=== PATIENT | male | born 1975 | race Caucasian/White ===

== ENCOUNTER → 2018-02-03 08:01 | Outpatient (CLI) | payer MEDICAID, SELFPAY ==
--- NOTE | 2018-02-03 08:04 | CT_ITS ---
STUDY: CT MAXILLOFACIAL SINUSES REASON FOR EXAM: Male, 42 years old. History of nasal polyp. RADIATION DOSAGE (If Supplied By Facility): CTDIvol = ( 33.06 ) mGy, DLP = ( 899.96 ) mGycm TECHNIQUE: The patient was scanned in a multi detector CT scanner. High resolution axial imaging was performed without the administration of intravenous contrast material. Sagittal and coronal images were reconstructed. Individualized dose optimization techniques were used for this CT. COMPARISON: None. FINDINGS: FRONTAL SINUSES: Normal aeration, without mucosal inflammatory disease. ETHMOIDAL SINUSES: Partial opacification of the ethmoid sinuses. MAXILLARY SINUSES: Mucosal thickening of the maxillary sinus bilaterally. SPHENOIDAL SINUSES: Normal aeration, without mucosal inflammatory disease. There is obliteration of the ostiomeatal complex bilaterally due to mucosal hypertrophy worse on the left side. Normal bilateral middle turbinates. Normal bilateral inferior turbinates. Normal midline nasal septum. There are nasal secretions along the floor of the nasal airways without a airway obstruction. Soft tissue proliferation within the nasal airway suggestive of polyposis. The visualized osseous structures are normal. The visualized bilateral orbital contents are normal. CT/Sinus/Facial Bone IMPRESSION: Sinusitis as described. Prominent soft tissue within the nasal airways. Electronically Signed: Peter Harp MD at 8:56 EDT Tel [phone], Service support ,
[2018-02-06 12:07] LABS: Clam <0.10 kU/L (Class 0); Codfish <0.10 kU/L (Class 0); Corn 0.12 kU/L (Class 0/I); Egg, White <0.10 kU/L (Class 0); Milk (Cow) <0.10 kU/L (Class 0); Peanut <0.10 kU/L (Class 0); SCALLOP <0.10 kU/L (Class 0); Shrimp <0.10 kU/L (Class 0); Walnut, (Food) 0.17 kU/L (Class 0/I); Wheat 0.21 kU/L (Class 0/I)
[2018-02-06 13:06] LABS: SESAME SEED 0.22 kU/L (Class 0/I)
[2018-02-07 09:36] LABS: Alternaria tenuis 4.65 kU/L (Class IV); Ash, White 0.56 kU/L (Class II); Aspergillus fumigatus 0.17 kU/L (Class 0/I); Birch <0.10 kU/L (Class 0); Black Walnut 0.33 kU/L (Class I); Cedar, Mountain 0.16 kU/L (Class 0/I); Cladosporium herbarum 0.13 kU/L (Class 0/I); Cockroach, American 0.15 kU/L (Class 0/I); Cottonwood 0.23 kU/L (Class 0/I); D farinae Mite 0.11 kU/L (Class 0/I); D pteronyssinus 0.14 kU/L (Class 0/I); Elm, American White 0.18 kU/L (Class 0/I); Immunoglobulin E 316 IU/mL (0-100); Maple/Box Elder 0.12 kU/L (Class 0/I); Mulberry, White <0.10 kU/L (Class 0); Oak, White 0.12 kU/L (Class 0/I); Pecan 0.25 kU/L (Class 0/I); Penicillium Notatum 0.13 kU/L (Class 0/I); Pigweed, Rough 0.18 kU/L (Class 0/I); Ragweed, Short/Common 0.37 kU/L (Class I); Sheep Sorrel <0.10 kU/L (Class 0); Timothy Grass 2.41 kU/L (Class III)
[2018-02-09 11:18] LABS: Mouse Urine <0.10 kU/L (Class 0)
== END ==
PROVIDERS: Family Provider Family Medicine; PCP Family Medicine; Visit Provider Otolaryngology
DX: J33.9 Nasal polyp, unspecified (principal)
CPT/HCPCS: 36415; 70486; 82785; 86003

== ENCOUNTER → 2018-04-24 14:55 | Outpatient (CLI) | payer MEDICAID, SELFPAY ==
--- NOTE | 2018-04-24 12:40 | ETH_PTH ---
PATIENT: MARIA G AMIN LOC: [facility] U#:[id number] AGE/SX: 50/M ROOM: RE04/24/[address]: Dr. Carlos Cuenca MD : 1975 BED: DIS: SPEC #: [id number] RECD: 04/24/18 14:36 STATUS: GLENROY HIRAM #: [id number] NIKKI: 04/24/18 12:[address]: Carlos Cuenca DEPT: SURGICAL PATHOLOGY RECD BY: Harshad Vines ENTERED: 04/25/18 06:54 SP TYPE: ETH TISS OTHR DR: Dr. Chaka Wall, [facility] Tissues: A - Ethmoid sinus, NOS B - Ethmoid sinus, NOS Procedures: Decalcification bone/plaque Surgery Specimen Level III HEADER OPERATION: Endoscopic sinus surgery, bilateral maxillary antrostomy, bilateral ethmoidectomy PRE-OP DIAGNOSIS: Polyp of nasal cavity, chronic sinusitis TISSUE SUBMITTED: A ? Right sinus contents, B ? Left sinus contents MICROSCOPIC DIAGNOSIS A. Right sinus contents: Fragments of benign sinonasal polyp. Mild chronic sinusitis. Fragments of bone with no pathologic change. B. Left sinus contents: Fragments of benign sinonasal polyp. Mild chronic sinusitis. Fragments of bone with no pathologic change. AM:tyrell 04/28/18 MICROSCOPIC DESCRIPTION Slides are reviewed. GROSS DESCRIPTION A - Received in fixative is one container labeled with the patient's name and designated right sinus contents. The specimen consists of multiple irregular fragments of rbown soft tissue mixed with fragments of bone that in aggregate measure 3 x 2.5 x 0.3 cm. The entire specimen is submitted in one cassette after decalcification. B - Received in fixative is one container labeled with the patient's name and designated left sinus contents. The specimen consists of multiple irregular fragments of brown soft tissue mixed with fragments of bone that in aggregate measure 3 x 2.5 x 0.3 cm. The entire specimen is submitted in one cassette after decalcification. / SJ:tyrell 04/25/18 TC:3 CPT: 89336 x2, 53426 x2
== END ==
PROVIDERS: Family Provider Family Medicine; PCP Family Medicine; Visit Provider Otolaryngology
DX: J32.9 Chronic sinusitis, unspecified (principal); J33.0 Polyp of nasal cavity
CPT/HCPCS: 88304; 88305; 88311

== ENCOUNTER → 2020-10-13 14:39 | Outpatient (CLI) | payer OTHER, SELFPAY ==
[2016-10-27 16:34] VITALS: BMI 18.6
[2020-10-13 17:23] LABS: Absolute Lymphocyte Count 1.77 X10^3/uL (0.83-4.51); Absolute Neutrophil Count 2.1 X10^3/uL (2.0-7.7); Basophil# 0.05 X10^3/uL; Eosinophil# 0.37 X10^3/uL; Eosinophils% 7.6 % (0-5); Hematocrit 42.8 % (40-54); Lymphocyte # 1.77 X10^3/ul (4.0); Lymphocyte % 36.3 % (19-41); Mean Corpuscular Hgb 31.8 pg (27.0-32.0); Mean Corpuscular Volume 90.9 fL (80-94); Mean Platelet Vol. 9.9 fl (6.2-12.0); Monocyte# 0.54 X10^3/uL; Monocyte% 11.1 % (0-10); NRBC Flagged by Analyzer 0 % (0-5); Neutrophil # 2.13 X10^3/uL (2.7-7.7); Neutrophil % 43.8 % (47-70); Platelet Count 255 K/mm3 (150-450); RBC Distribution Width CV 12.7 % (11.6-14.6); RBC Distribution Width SD 40.5 fl (35.1-43.9); Red Blood Count 4.71 M/mm3 (4.6-6.2); White Blood Count 4.9 K/mm3 (4.4-11.0)
[2020-10-13 17:37] LABS: Vitamin B12 589 pg/mL (211-911); Vitamin D,25 Hydroxy 20.2 ng/mL
[2020-10-13 17:48] LABS: AST(SGOT) 17 U/L (15-37); Alanine Aminotransfer ALT/SGPT 29 U/L (16-61); Albumin, Serum 3.8 g/dL (3.2-5.0); Alkaline Phosphatase 61 U/L (45-117); Anion Gap 7 (5-15); BUN 14 mg/dL (7-18); BUN/Creat Ratio 14.6 RATIO (10-20); Calcium,Total 8.6 mg/dL (8.5-10.1); Chloride 104 mmol/L (98-107); Cholesterol 163 mg/dL (200); Creatinine, Serum 0.96 mg/dL (0.70-1.30); EST Glomerular Filtration Rate 90 mL/min (>60); Est Glom Filt Rate - Afr Amer 109 mL/min (>60); Globulin 3.8 g/dL (2.2-4.2); Glucose 57 mg/dL (74-106); High Density Lipoprotein 73 mg/dL; Iron 67 ug/dL (65-175); Potassium 3.7 mmol/L (3.5-5.1); Protein, Total 7.6 g/dL (6.4-8.2); Sodium Level 138 mmol/L (136-145); Thyroid Stim Hormone (TSH) 1.14 uIU/mL (0.358-3.74); Triglycerides 69 mg/dL; Very Low Density Lipoprotein 14 mg/dL (5-40)
== END ==
PROVIDERS: PCP Family Medicine; Visit Provider Family Medicine
DX: Z00.00 Encounter for general adult medical examination without abnormal findings (principal); Z51.81 Encounter for therapeutic drug level monitoring; R53.83 Other fatigue
CPT/HCPCS: 36415; 80053; 80061; 82306; 82607; 83540; 84443; 85025

== ENCOUNTER → 2023-10-10 | Outpatient (CLI) | payer OTHER, SELFPAY ==
[2023-10-10 11:29] LABS: Basophil# 0.05 X10^3/uL; Basophil% 1.1 % (0-1); Eosinophils% 10.6 % (0-5); Hematocrit 46.7 % (40-54); Hemoglobin 15.3 g/dL (13.0-16.5); Mean Corp Hgb Conc 32.8 g/dL (32-36); Mean Corpuscular Hgb 29.1 pg (27.0-32.0); Mean Platelet Vol. 9.9 fl (6.2-12.0); Monocyte# 0.52 X10^3/uL; Monocyte% 11.1 % (0-10); NRBC Flagged by Analyzer 0 % (0-5); Neutrophil # 2.02 X10^3/uL (2.7-7.7); Platelet Count 291 K/mm3 (150-450); RBC Distribution Width CV 12.5 % (11.6-14.6); RBC Distribution Width SD 41.3 fl (35.1-43.9); Red Blood Count 5.25 M/mm3 (4.6-6.2); White Blood Count 4.7 K/mm3 (4.4-11.0)
[2023-10-10 11:57] LABS: Vitamin D,25 Hydroxy 40.8 ng/mL
[2023-10-10 12:03] LABS: AST(SGOT) 17 U/L (15-37); Alanine Aminotransfer ALT/SGPT 25 U/L (16-61); Albumin, Serum 3.9 g/dL (3.2-5.0); Alkaline Phosphatase 73 U/L (45-117); Anion Gap 1 (5-15); BUN 13 mg/dL (7-18); BUN/Creat Ratio 12.9 RATIO (10-20); Calcium,Total 9.3 mg/dL (8.5-10.1); Chloride 108 mmol/L (98-107); Cholesterol 198 mg/dL (200); Creatinine, Serum 1.01 mg/dL (0.70-1.30); EST Glomerular Filtration Rate 83 mL/min (>60); Est Glom Filt Rate - Afr Amer 101 mL/min (>60); Globulin 3.9 g/dL (2.2-4.2); Glucose 92 mg/dL (74-106); High Density Lipoprotein 82 mg/dL; Magnesium 2.2 mg/dL (1.6-2.6); PSA,Total - Annual Screen 0.96 ng/mL (0.00-4.00); Potassium 4.2 mmol/L (3.5-5.1); Protein, Total 7.8 g/dL (6.4-8.2); Sodium Level 138 mmol/L (136-145); Thyroid Stim Hormone (TSH) 1.65 uIU/mL (0.358-3.74); Triglycerides 73 mg/dL; Very Low Density Lipoprotein 15 mg/dL (5-40)
== END | disposition home or self-care (01) ==
LOC: LAB 10:57
PROVIDERS: PCP Internal Medicine; Referring Provider Internal Medicine; Visit Provider Internal Medicine
DX: R55 Syncope and collapse (principal); Z13.220 Encounter for screening for lipoid disorders; E55.9 Vitamin D deficiency, unspecified; Z12.5 Encounter for screening for malignant neoplasm of prostate
CPT/HCPCS: 36415; 80053; 80061; 82306; 83735; 84153; 84443; 85025; G0103

== ENCOUNTER → 2023-11-22 | Outpatient (CLI) | payer OTHER, SELFPAY ==
--- NOTE | 2023-11-22 15:06 | CDU_ITS ---
Reason For Study: Dizziness Rt. Velocities/BP Lt. Velocities/BP Prox CCA 103.4/26.7 cm/sec. Prox CCA 123.5/35.8 cm/sec. Mid CCA 112.5/26.7 cm/sec. Mid CCA 118.0/32.1 cm/sec. Dist CCA 125.3/34.0 cm/sec. Dist CCA 123.5/35.8 cm/sec. Prox ICA 103.4/24.8 cm/sec. Prox ICA 105.2/32.1 cm/sec. Mid ICA 53.5/27.8 cm/sec. Mid ICA 85.5/30.2 cm/sec. Dist ICA 70.7/29.0 cm/sec. Dist ICA 81.8/36.3 cm/sec. Rt. ICA/CCA = 0.9. Lt. ICA/CCA = 0.90. Prox ECA 103.9/17.9 cm/sec. Prox ECA 110.0/21.6 cm/sec. Rt. Vert. 63.9/21.4 cm/sec. Lt. Vert. 58.8/13.9 cm/sec. Right Extracranial There is intimal thickening but no significant atherosclerotic plaque noted in the right common carotid artery. There is intimal thickening but no significant atherosclerotic plaque noted in the right internal carotid artery. There is intimal thickening but no significant atherosclerotic plaque noted in the right external carotid artery. Antegrade flow is noted in the right vertebral artery. Left Extracranial There is intimal thickening but no significant atherosclerotic plaque noted in the left common carotid artery. There is intimal thickening but no significant atherosclerotic plaque noted in the left internal carotid artery. There is intimal thickening but no significant atherosclerotic plaque noted in the left external carotid artery. Antegrade flow is noted in the left vertebral artery. Procedure Carotid Duplex 15247. This is a Carotid Duplex examination using B-mode, color flow and specral Doppler. The exam was diagnostic. Exam performed in department. VL/Carotid Duplex Ultrasound Interpretation Summary Intimal thickening of the proximal right internal carotid artery with less than 50% stenosis Less than 50% stenosis right external carotid artery Intimal thickening at the proximal left internal carotid artery with less than 50% stenosis Less than 50% stenosis left external carotid artery Patent antegrade vertebral arteries bilaterally Ordering Physician: Kishan Currie MD Referring Physician: Kishan Currie MD Performed By: Wan Mayer RVT
== END | disposition home or self-care (01) ==
LOC: CVS 16:09
PROVIDERS: PCP Internal Medicine; Referring Provider Surgery; Visit Provider Surgery
DX: R55 Syncope and collapse (principal)
CPT/HCPCS: 93880

== ENCOUNTER 2023-11-28 06:52 | Day surgery (SDC) | payer OTHER, SELFPAY ==
[2023-11-28] VITALS (7 sets, daily range): BP systolic 99–129; BP diastolic 68–97; PULSE 57–79; RESP 16; TEMP 36.2–36.6; O2SAT 98–100; BMI 20.9
--- NOTE | 2023-11-28 | COLBX_PTH ---
PATIENT: MARIA G AMIN LOC: [facility] U#:[id number] AGE/SX: 48/M ROOM: RE11/28/[address]: Dr. Kishan Currie MD : 1975 BED: DIS: 11/28/2023 SPEC #: [id number] RECD: 11/28/23 13:52 STATUS: GLENROY TENORIOMolly #: [id number] NIKKI: 11/28/23 00:[address]: Kishan Currie DEPT: SURGICAL PATHOLOGY RECD BY: Kobi Ledesma ENTERED: 11/28/23 13:52 SP TYPE: COLON BX BINH DR: Dr. Dot Kirk MD Tissues: A - Rectum, NOS B - Rectum, NOS Procedures: Surgery Specimen Level IV HEADER OPERATION: Colonoscopy with biopsies PRE-OP DIAGNOSIS: Left inguinal hernia, Near syncope TISSUE SUBMITTED: A- Proxima rectum polyp biopsy, B- Mid rectum polyp biopsy x3 MICROSCOPIC DIAGNOSIS A. Proxima rectum polyp, biopsy; Fragments of colonic mucosa, no pathologic diagnosis. B. Mid rectum polyp x3, biopsy; Fragments of hyperplastic polyp. / 11/29/2023 MICROSCOPIC DESCRIPTION Slides are reviewed. GROSS DESCRIPTION A. Received in fixative is one container labeled with the patient's name and designated Proximal rectum polyp biopsy. The specimen consists of two irregular fragments of light brown soft tissue that in aggregate measure 0.6 x 0.3 x 0.1 cm. The specimen is totally submitted in one cassette. B. Received in fixative is one container labeled with the patient's name and designated Mid rectum polyp biopsy x3. The specimen consists of multiple irregular fragments of light brown soft tissue that in aggregate measure 0.8 x 0.5 x 0.1 cm. The specimen is totally submitted in one cassette. / 11/28/23 TC:1 CPT: 52434a0
--- NOTE | 2023-11-28 07:07 | PCM.HP.BLA ---
History and Physical Date of Admission: 11/28/23 Allergies acetaminophen [From Tylenol] Allergy (Verified 10/24/23 14:14) Swellingaspirin Allergy (Verified 10/24/23 14:14) SwellingEnvironmental Allergies: Uncoded Allergy (Verified 10/24/23 14:14) PT UNABLE TO RESPOND-NEEDS F/Uibuprofen Allergy (Verified 10/24/23 14:14) Swelling Medications albuterol sulfate 90 mcg/actuation aerosol inhaler (Ventolin HFA) 1 - 2 puff inhalation Q6H PRN PRN Asthma 09/23/16 [History Confirmed 10/24/23] florastor probiotic PO 12/08/22 [History Confirmed 10/24/23] calcium carbonate,citrate-magnesium oxide 200 mg calcium-50 mg tablet (CalMag Thins) tab PO 10/24/23 [History Confirmed 10/24/23] cholecalciferol (vitamin D3) 125 mcg (5,000 unit) capsule 125 mcg PO DAILY 10/24/23 [History Confirmed 10/24/23] multivitamin 1 tab PO DAILY 10/24/23 [History Confirmed 10/24/23] PFSH Surgical History History of hernia surgery Family History (Updated 10/24/23 @ 14:12 by Yamileth Pool) Father Hypertension Social History adopted: No household members: none housing: house number of children: 0 current occupational status: employed current occupation: self pets and animals: No leisure activities: fishing history of recent travel: No sexually active: No Smoking Status: Never smoker alcohol intake: never substance use type: does not use diet: low carbohydrate well-balanced diet: daily or most days caffeine: Yes eating out: rarely or never during the past year weight has: remained stable what type of physical activity do you participate in: other desmond/restorationism: Confucianist seatbelt use: always do you feel safe at home: Yes HPI HPI HPI: 48-year-old gentleman is being referred by Dr. Tyler for [facility] for surgical consultation regarding a left inguinal hernia. He has had a presyncopal episode. Also complaining of a left inguinal hernia present now for at least 4 months. September 29, 2016 he had a robotic assisted right inguinal hernia.That involves some postoperative complications. He ended up with a bowel obstruction and had exploratory laparoscopy converted to an exploratory laparotomy and release of small bowel adhesions. As of October 10, 2023 his white count was 4.7 hemoglobin 15.3 hematocrit 46.7 with platelet count of 291,000. 43% neutrophils. BUN was 13 creatinine 1.01 with a glucose of 92. Liver function tests were normal. An ECG showed sinus rhythm. RSR in V1 nondiagnostic. Possible anteroseptal ischemia. Borderline. The patient states that he is due for a colonoscopy and has been deferring this. Currently however he has had trouble some dizzy spells. This actually even occurred in anglican just when he was sitting. Etiology not clear. He has a monitor in place. He is complaining of bulging in the left groin. This been going on for several months. He is able to reduce it. He was to have an echocardiogram but insurance would not cover. He has never had a carotid duplex imaging exam. ROS General General: Yes fatigue; No weight change, appetite, colon cancer, breast cancer or weakness HEENT HEENT: No difficulty swallowing, eye injury, eye surgery, swollen glands or hoarseness Endo Endocrine: No thyroid disease, diabetes mellitus, thyroid cancer, Hair loss, heat intolerance or cold intolerance Skin Skin: No rash or changing moles Musc Musculoskeletal: No back problems, arthritis, rheumatoid arthritis, gout or joint pain Cardio Cardiovascular: No murmur, pacemaker, heart disease, atrial fibrillation, high blood pressure, heart attack, heart stent, palpitations, shortness of breat with exertion or chest pain Psych Psychiatric: Yes anxiety; No depression or hearing voices Resp Respiratory: No shortness of breath, No sleep apnea, No cough, No COPD, Yes asthma, No emphysema and No wheezing Gastro Gastrointestinal: No abdominal pain, Yes nausea or vomiting, No diarrhea, No constipation, No blood in stool, No acid reflux, No hemorrhoids, No ulcers, No gallbladder problem and No black,tarry stools Stoney Hematologic: No blood thinners, No blood disorders, No bleeding, No anemia and No blood clots Neuro Neurologic: No system reviewed and no additional complaints, except as documented, No as per HPI, No abnormal gait, No abnormal hearing, No abnormal movements, No abnormal speech, No behavioral changes, No burning sensations, No confusion, No convulsions, No disequilibrium, No dizziness, No localized weakness, No frequent falls, No headache(s), No lack of coordination, No loss of vision, No memory loss, No numbness, No other visual disturbances, No radicular pain, No restless legs, No sensory deficit, No syncope, No tingling, No tremor(s), No weakness and No other Exam Const General: cooperative, healthy appearing, comfortable and no acute distress Nutritional Appearance: average body habitus [facility] Head: normal to inspection Eyes General: appearance normal, both eyes and all related structures Neck Neck: normal visual inspection Chest Chest palpation & inspection: normal inspection of the chest Resp Effort & Inspection: normal respiratory effort Auscultation: clear to auscultation bilaterally Cardio Rate: regular rate Rhythm: regular rhythm GI Inspection: normal to inspection Other: Well-healed midline incision extending from superior to the umbilicus to inferior. Solid and intact. Soft nontender. Bowel sounds normal. Other: Testicles are descended bilaterally. Right inguinal area is solid and intact. Left groin demonstrates an obvious hernia that bulges with standing. It is mostly reducible when supine. Musc Cervical Spine: normal cervical lordosis Skin General: no rashes or lesions noted Neuro General: patient alert, patient awake and patient oriented x3 Extrem General: no calf tenderness Psych Appearance: grossly normal Assessment and Plan Assessment and Plan (1) Left inguinal hernia: Status: Acute (2) Near syncope: Status: Acute Plan: Patient appears to have a symptomatic indirect left inguinal hernia. Because of his previous problems with his intra-abdominal surgery I recommend him a Iris left inguinal herniorrhaphy.This would utilize mesh. We could perform this at his discretion either with monitored anesthesia care and local or general anesthesia. With his present I discussed the technique, benefit, risk, alternatives. No guarantees of success been offered. The patient is also in need of a screening colonoscopy and I have discussed technique, benefit, risk, alternatives. I do prefer that the colonoscopy precedes the hernia repair in case adverse event is detected. The patient is particularly aware of potential risk of bleeding or perforation. He has had an opportunity to ask and have questions answered. The patient is wearing an event monitor. He has 7 more days to go. I do recommend that we pursue a carotid duplex exam because of his dizziness or syncopal spells. My understanding is that the echocardiogram has been denied by insurance. We will tentatively provide operative dates but will hold off on proceeding until we get clearance from Dr. Kirk Copy: Dr. Dot Currie M.D., FPerryS. I have examined the patient and the H&P has been reviewed. There are no clinical changes since date of exam. Kishan Currie M.D., DianaS.
[2023-11-28] MEDS: Lactated Ringers 1,000 ML 15 ML IV (07:15)
--- NOTE | 2023-11-28 07:56 | EKG12_ITS ---
Test Reason : PREOP Blood Pressure : / mmHG Vent. Rate : 083 BPM Atrial Rate : 083 BPM P-R Int : 148 ms QRS Dur : 096 ms QT Int : 378 ms P-R-T Axes : 074 086 063 degrees QTc Int : 444 ms Normal sinus rhythm Possible Left atrial enlargement Incomplete right bundle branch block Borderline ECG When compared with ECG of 20-OCT-2009 17:58, No significant change was found Confirmed by Grant Adame ([id number]), design editor LILLIAN HEADLEY ([id number]) on 12/01/2023 11:14:58 AM Referred By: Dot Kirk Confirmed By:Grant Adame
--- NOTE | 2023-11-28 09:26 | OP.COLON_ITS ---
Patient Name: Moris Bloom Procedure Date: 11/28/2023 7:50 AM Date of : 1975 Age: 48 Procedure: Colonoscopy Indications: Screening for colorectal malignant neoplasm Providers: Kishan Currie MD Medicines: See the Anesthesia note for documentation of the administered medications Patient Profile: Last Colonoscopy: none. The patient's first colonoscopy is today. Complications: No immediate complications. Procedure: Pre-Anesthesia Assessment: - Prior to the procedure, a History and Physical was performed, and patient medications and allergies were reviewed. The patient's tolerance of previous anesthesia was also reviewed. The risks and benefits of the procedure and the sedation options and risks were discussed with the patient. All questions were answered, and informed consent was obtained. Prior Anticoagulants: The patient has taken no anticoagulant or antiplatelet agents. ASA Grade Assessment: II - A patient with mild systemic disease. After reviewing the risks and benefits, the patient was deemed in satisfactory condition to undergo the procedure. After I obtained informed consent, the scope was passed under direct vision. Throughout the procedure, the patient's blood pressure, pulse, and oxygen saturations were monitored continuously. The Colonoscope was introduced through the anus and advanced to the cecum, identified by appendiceal orifice and ileocecal valve. The colonoscopy was performed without difficulty. The patient tolerated the procedure well. The quality of the bowel preparation was good. The ileocecal valve and the appendiceal orifice were photographed. Scope In: 9:00:37 AM Scope Withdrawal Time 0 hours 11 minutes 35 seconds Scope Out: 9:21:05 AM Total Procedure Duration Time 0 hours 20 minutes 28 seconds Findings: The digital rectal exam findings include non-thrombosed internal hemorrhoids and internal hemorrhoids that prolapse with straining, but spontaneously regress to the resting position (Grade II). Pertinent negatives include normal prostate (size, shape, and consistency). A 4 mm polyp was found in the proximal rectum. The polyp was sessile. The polyp was removed with a cold biopsy forceps. Resection and retrieval were complete. Three sessile polyps were found in the mid rectum. The polyps were 2 to 3 mm in size. These polyps were removed with a cold biopsy forceps. Resection and retrieval were complete. The exam was otherwise without abnormality. Impression: - Non-thrombosed internal hemorrhoids and internal hemorrhoids that prolapse with straining, but spontaneously regress to the resting position (Grade II) found on digital rectal exam. - One 4 mm polyp in the proximal rectum, removed with a cold biopsy forceps. Resected and retrieved. - Three 2 to 3 mm polyps in the mid rectum, removed with a cold biopsy forceps. Resected and retrieved. - The examination was otherwise normal. Recommendation: - Discharge patient to home. - Resume previous diet. - Continue present medications. - Telephone my office for pathology results in 1 week. - Repeat colonoscopy in 5 years for surveillance based on pathology results. Procedure Code(s): --- Professional --- 90495, Colonoscopy, flexible; with biopsy, single or multiple Diagnosis Code(s): --- Professional --- D12.8, Benign neoplasm of rectum Z12.11, Encounter for screening for malignant neoplasm of colon K64.1, Second degree hemorrhoids CPT copyright 2021 [employer]. All rights reserved. The codes documented in this report are preliminary and upon medical records coder review may be revised to meet current compliance requirements. Kishan Currie MD 11/28/2023 9:26:12 AM This report has been signed electronically. Number of Addenda: 0 Note Initiated On: 11/28/2023 7:50 AM
--- NOTE | 2023-11-28 09:27 | OP.CCLET_ITS ---
11/28/2023 Dot Kirk [facility] [address] [place] [address] Re : Colonoscopy procedure for Moris Bloom Dear Dr. Kirk This procedure was performed on Tuesday, November 28, 2023. My impressions and recommendations are as follows: Impressions : - Non-thrombosed internal hemorrhoids and internal hemorrhoids that prolapse with straining, but spontaneously regress to the resting position (Grade II) found on digital rectal exam. - One 4 mm polyp in the proximal rectum, removed with a cold biopsy forceps. Resected and retrieved. - Three 2 to 3 mm polyps in the mid rectum, removed with a cold biopsy forceps. Resected and retrieved. - The examination was otherwise normal. Recommendations : - Discharge patient to home. - Resume previous diet. - Continue present medications. - Telephone my office for pathology results in 1 week. - Repeat colonoscopy in 5 years for surveillance based on pathology results. My findings are described in the full procedure note, which is enclosed. If I can be of further assistance, please feel free to contact me at Doctor phone number(s): Work: . Sincerely, Kishan Currie MD 11/28/2023 9:26:12 AM This report has been signed electronically.
== END 2023-11-28 10:08 | disposition home or self-care (01) ==
LOC: EN 06:52 → AC 06:55
PROVIDERS: PCP Internal Medicine; Referring Provider Internal Medicine; Visit Provider Surgery
PROC: 0DJD8ZZ Inspection of Lower Intestinal Tract, Via Natural or Artificial Opening Endoscopic (ICD-10-PCS; CPT 45378; principal; 2023-11-28 07:55)
DX: Z12.11 Encounter for screening for malignant neoplasm of colon (principal); K40.90 Unilateral inguinal hernia, without obstruction or gangrene, not specified as recurrent; R55 Syncope and collapse; K64.1 Second degree hemorrhoids; D12.8 Benign neoplasm of rectum; J45.909 Unspecified asthma, uncomplicated
CPT/HCPCS: 45380; 88305; 93005; J7120; J2405

== ENCOUNTER → 2024-01-12 | Outpatient (CLI) | payer OTHER, SELFPAY ==
--- NOTE | 2024-01-12 14:05 | ECHOD_ITS ---
Reason For Study: TACHYCARDIA, TAKOTSUBO SYNDROME Procedure This was a 2D Doppler, Color Flow transthoracic echocardiogram. Exam performed in department. Left Ventricle Normal LV size. Left ventricular systolic function is normal. The estimated ejection fraction is 60 %. No regional wall motion abnormalities noted. Right Ventricle Normal RV size. The right ventricle is normal in size, function, and thickness. Atria Normal left atrium. Normal right atrium. Mitral Valve Normal mitral valve. Mild (1+) mitral valve insufficiency. Tricuspid Valve Normal tricuspid valve. Aortic Valve Normal aortic valve. Trisinus/trileaflet aortic valve. Pulmonic Valve Normal pulmonic valve. Great Vessels Normal aortic root. The pulmonary artery is normal size. Normal inferior vena cava. Pericardium/Pleural No pericardial effusion. MMode/2D Measurements & Calculations LVIDd: 4.4 cm IVSd: 0.74 cm Ao root diam: 3.1 cm LVIDs: 2.8 cm LVPWd: 0.89 cm RVDd: 3.0 cm FS: 36.9 % LAV(MOD-bp): 23.7 ml LVAd ap4: 25.7 cm2 SV(MOD-sp4): 42.3 ml LAV(MOD-bp) Indexed: 13.0 ml/m2 LVLd ap4: 8.4 cm LAV(MOD-sp2): 25.9 ml EDV(MOD-sp4): 66.7 ml LAV(MOD-sp4): 20.9 ml EDV(sp4-el): 66.6 ml LVAs ap4: 13.6 cm2 LVLs ap4: 6.5 cm ESV(MOD-sp4): 24.4 ml ESV(sp4-el): 23.9 ml EF(MOD-sp4): 63.4 % EF(sp4-el): 64.1 % SV(sp4-el): 42.7 ml LA A4 area: 11.6 cm2 LA dimension(2D): 3.1 cm RA A4 area: 11.2 cm2 TAPSE: 2.3 cm Time Measurements MV dec time: 0.22 sec Doppler Measurements & Calculations MV E max craig: 65.4 cm/sec Lat Peak E' Craig: 17.8 cm/sec Med Peak E' Craig: 13.0 cm/sec MV A max craig: 46.8 cm/sec E/E' lat: 3.7 E/E' med: 5.0 MV E/A: 1.4 Ao V2 max: 109.2 cm/sec LV V1 max: 102.5 cm/sec PA V2 max: 70.9 cm/sec Ao max P.8 mmHg LV V1 max P.2 mmHg ECHO/Echo Complete Interpretation Summary Normal LV size. Left ventricular systolic function is normal. The estimated ejection fraction is 60 %. Structurally normal valves. Ordering Physician: Dot Kirk Referring Physician: Dot Kirk Performed By: Margaret Gamble RDCS
== END | disposition home or self-care (01) ==
LOC: CVS 14:02
PROVIDERS: PCP Internal Medicine; Referring Provider Internal Medicine; Visit Provider Internal Medicine
DX: R00.0 Tachycardia, unspecified (principal); R55 Syncope and collapse
CPT/HCPCS: 93306